=== PATIENT | male | born 2005 | race Caucasian/White ===

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

== ENCOUNTER 2025-03-25 06:56 | Emergency (ER) | payer BC | END 2025-03-25 08:20 | disposition home or self-care (01) | LOC: MW.ED 06:56 | DX: H60.93 Unspecified otitis externa, bilateral (principal) | CPT/HCPCS: 87651; 99282; 99283 ==

== ENCOUNTER 2025-03-27 08:43 | Emergency (ER) | payer BC ==
[2025-03-27] MEDS: Doxycycline Monohydrate 100 MG Cap PO ONE (09:21)
[2025-03-30 15:07] LABS: LYME VLSE1/PEPC10 ABS, ELISA 0.14 IV (<=0.90)
[2025-03-31 08:03] LABS: RMSF IGG <1:64 (<1:64); RMSF IGM <1:64 (<1:64)
== END 2025-03-27 09:31 | disposition home or self-care (01) ==
LOC: MW.ED 08:43
DX: R21 Rash and other nonspecific skin eruption (principal); F17.200 Nicotine dependence, unspecified, uncomplicated
CPT/HCPCS: 86618; 86757; 99283; A9270; 99282